=== PATIENT | female | born 1995 | race Hispanic/Latino ===

== ENCOUNTER 2019-03-11 22:50 | Emergency (ER) | payer SELFPAY ==
[~2019-03-11] VITALS: Ht 154.9 cm; Wt 83.9 kg
== END 2019-03-11 23:54 | disposition left against medical advice (07) ==
LOC: ER 22:50
DX: L02.413 Cutaneous abscess of right upper limb (principal)

== ENCOUNTER 2021-05-28 20:58 | Emergency (ER) | payer SELFPAY ==
[~2021-05-28] VITALS: Ht 154.9 cm; Wt 99.3 kg
[2021-05-28] MEDS ORDERED: ACETAMINOPHEN-1 EAC4 PO (22:18)
== END 2021-05-28 22:26 | disposition home or self-care (01) ==
LOC: ER 22:15
DX: R10.11 Right upper quadrant pain (principal)
CPT/HCPCS: 99282